=== PATIENT | male | born 1955 | race Caucasian/White ===

== ENCOUNTER 2017-06-29 18:38 | Emergency (ER) | payer OTHER, MEDICARE ==
[~2017-06-29] VITALS: Ht 175.3 cm; Wt 136.1 kg
[2017-06-29 20:39] LABS: ABSOLUTE BASOPHIL COUNT 0 /CUMM (0.0-0.2); ABSOLUTE EOSINOPHIL COUNT 0.1 /CUMM (0.0-0.7); ABSOLUTE GRANULOCYTE CT 10.8 /CUMM (1.4-6.5); ABSOLUTE MONOCYTE COUNT 0.6 /CUMM (0.10-0.60); BASOPHIL % 0.1 % (0.0-2.0); GRANULOCYTE % 85.6 % (42.2-75.2); HEMATOCRIT 36.3 % (42-52); MEAN CORPUSCULAR HGB 28.3 PG (27.0-31.0); MEAN CORPUSCULAR HGB CONC 32.1 G/DL (33.0-37.0); MEAN CORPUSCULAR VOLUME 88.2 FL (80.0-94.0); MEAN PLATELET VOLUME 12.1 FL (7.4-10.4); PLATELET COUNT 226 /CUMM (130-400); RBC DISTRIBUTION WIDTH 15.1 % (11.5-14.5); RED BLOOD CELL CT 4.11 /CUMM (4.70-6.10); WHITE BLOOD CELL COUNT 12.6 /CUMM (4.8-10.8)
--- NOTE | 2017-06-29 20:49 | ED GI/GU/ABDOMINAL COMPLAINT ---
See Addendum History of Present Illness General Chief Complaint: Nausea, Vomiting, Diarrhea Stated Complaint: NVD Source: patient, old records Exam Limitations: no limitations Vital Signs & Intake/Output Vital Signs & Intake/Output Vital Signs Date Time Temp Pulse Resp B/P B/P Pulse O2 O2 Flow FiO2 Mean Ox Delivery Rate 06/29 2316 100.4 06/29 2236 100.4 90 20 135/60 93 Nasal 2.0L Cannula 06/29 2131 100.6 06/29 204 100.6 96 20 144/90 91 Room Air 06/29 1849 100.2 108 18 167/85 98 Room Air ED Intake and Output 06/30 0000 06/29 1200 Intake Total Output Total Balance Patient 300 lb Weight Weight Reported by Patient Measurement Method Allergies Coded Allergies: NO KNOWN ALLERGIES (08/17/14) NKA PER ANTIBIOTIC ORDER SHEET OF 08/17/14 ([facility]) Reconcile Medications Adalimumab (Humira Pen) 40 MG/0.8 ML PEN.IJ.KIT 1 SYR SC Q2W PSORIASIS ( Reported) Calcium Carb/Vit D3/Minerals (Calcium +D & Minerals Chew Tab) (Unknown Strength) TAB.CHEW (Unknown Dose) PO DAILY SUPPLEMENT (Reported) Triamcinolone Acetonide 0.1 % OINT...G. 1 KEVIN TOP PRN PSORIASIS (Reported) apply to affected area(s) Triage Note: 62 YO MALE TO TRAIGE C/O VOMTIING X2 DAYS. C/O ABD CRAMPING. DENIES DIRRHEA. PT STATES HE IS SOB, NO RESP DISTRESS NOTED. Triage Nurses Notes Reviewed? yes Onset: Abrupt Duration: day(s): (3), constant Timing: recent history Quality/Severity: aching, vomiting Severity Numbers: 6 Location: epigastric Radiation: no radiation Activities at Onset: none No Modifying Factors: none Associated Symptoms: denies HPI: 62-year-old male with history of psoriasis presents to ER for evaluation complaining of a three-day history of nausea vomiting and epigastric abdominal pain associated with feeling short of breath dyspnea upon exertion and cough. He denies any sick contacts. Report Christ reports to subjective fever chills at home no chest pain or pain with inspiration. The patient reports to a history of chronic bilateral lower extremity swelling which, He states unchanged from previous. black or bloody stools diarrhea hematemesis he does not smoke no history of asthma. The patient does report to being admitted in the past once for pneumonia. He denies any lower abdominal pain (Raymond Lyles) Past History Travel History Traveled to [place] past 21 day No Medical History Any Pertinent Medical History? see below for history Neurological: NONE EENT: NONE Cardiovascular: NONE Respiratory: NONE Gastrointestinal: NONE Hepatic: NONE Renal: NONE Musculoskeletal: NONE Psychiatric: NONE Endocrine: NONE Blood Disorders: NONE Cancer(s): NONE BIOPHARMACEUTICAL REP/Reproductive: NONE Surgical History Surgical History: none Psychosocial History Who do you live with Family Services at Home None What is your primary language Kinyarwanda Tobacco Use: Never used Family History Hx Contributory? No (Raymond Lyles) Review of Systems Review of Systems Constitutional: Reports: see HPI. Comments Review of systems: See HPI, All other systems negative. Constitutional, fever, no malaise no weight loss HEENT: no sore throat no congestion, no ear pain Cardiovascular: No chest pain , no palpitation Skin: no rashes, no change in skin Respiratory: dyspneacough no sputum no hemoptysis GI:nausea vomiting, no diarrhea : No dysuria No hematuria Muscle skeletal: No joint pain, no back pain, no neck pain, Neurologic: , no headache Heme/endocrine: No bruising Immunology: No lymphadenopathy (Raymond Lyles) Physical Exam Physical Exam General Appearance: well developed/nourished, alert, awake Gastrointestinal: soft, non-tender, hernia Comments: Well-developed well-nourished person in no acute distress HEENT: Normal EENT exam; PERRL, EOMI, HEAD is atraumatic. moist mucous membranes. Neck: Supple, no lymphadenopathy, normal range of motion Back: Nontender, no CVA tenderness. Full range of motion Cardiovascular: Regular rate and rhythms no murmurS, normal JVP Respiratory:No respiratory distress. Patient speaking in full complete sentences. Diminished breath sounds bilaterally Abdomen: Soft, nontender (+) midline hernia, nondistended, no appreciable organomegaly. Normal bowel sounds. No rebound/guarding, No ascites. Extremity: B/L LE edema pt reports is baseline, full range of motion of extremities, Neuro: Alert oriented x3, motor sensory normal, There were no obvious focal neurologic abnormalities. Skin: No appreciable rash on exposed skin, skin is warm and dry. Psych: Mood and affect is normal, memory and judgment is normal. Core Measures ACS in differential dx? Yes Sepsis Present: No Sepsis Focused Exam Completed? No (Letha RIOS,Raymond) Progress Differential Diagnosis: appendicitis, biliary colic, bowel obstruction, colon cancer, gastritis, hepatitis, hernia, pancreatitis, pna, pe. ami, chf Plan of Care: Orders Procedure Date/time Status Nothing by Mouth 06/30 B Active TROPONIN LEVEL 06/30 0800 Active EKG 06/30 0800 Active CBC WITHOUT DIFFERENTIAL 06/30 0600 Active BASIC ELECTROLYTES PLUS BUN&CR 06/30 0600 Active TROPONIN LEVEL 06/30 0200 Active EKG 06/30 0200 Active LACTIC ACID 06/30 0109 Active SWALLOW EVALUATION 06/30 0016 Active Pathway - chart 06/30 0016 Active House Staff 06/30 0016 Active Patient Data 06/30 0016 Active Code Status 06/30 0016 Active TRC EVALUATION (GEN) 06/30 UNK Active VTE Mechanical Prophylaxis 06/30 UNK Active Vital Signs 06/30 UNK Active Patient Data 06/29 2254 Active Saline Lock 06/29 2252 Active Misc Message 06/29 2252 Active ED Holding Orders 06/29 2252 Active Admit to inpatient 06/29 2252 Active Vital Signs 06/29 2252 Active Code Status 06/29 2252 Complete BLOOD CULTURE 06/29 220 Active LACTIC ACID 06/29 220 Complete RAPID VIRAL INFLUENZA A 06/29 205 Complete Intake & Output 06/29 2034 Active TROPONIN LEVEL 06/29 1928 Complete LIPASE 06/29 1928 Complete HEPATIC FUNCTION PANEL 06/29 1928 Complete CBC WITHOUT DIFFERENTIAL 06/29 192 Complete BASIC METABOLIC PANEL 06/29 1928 Complete AMYLASE 06/29 192 Complete EKG 06/29 1848 Active Current Medications Sig/Stefania Start time Last Medication Dose Stop Time Status Admin Calcium Carbonate 1,250 MG DAILY 06/30 1000 AC (Calcium Carbonate) Cholecalciferol 1,000 IU DAILY 06/30 1000 AC (Vitamin D) Enoxaparin Sodium 40 MG DAILY 06/30 1000 AC (Lovenox) Omeprazole 40 MG DAILY AC 06/30 0700 AC (Prilosec) Acetaminophen 650 MG Q6P PRN 06/30 0030 AC (Tylenol) Acetaminophen 1,000 MG Q6P PRN 06/30 0030 AC (Ofirmev) Albuterol Sulfate 3 ML Q6 PRN 06/30 0030 AC (Proventil) Ampicillin Sodium/ 3,000 MG Q6 06/30 0030 AC Sulbactam Sodium (Unasyn) Sodium Chloride 100 ML (Normal Saline 0.9%) Triamcinolone 1 KEVIN DAILY NEEDED PRN 06/30 003 AC Acetonide (Kenalog) Sodium Chloride 1,000 ML .Q10H 06/30 0015 AC (Normal Saline 0.9%) 06/30 2013 Sodium Chloride 1,000 ML ONCE ONE 06/29 2129 AC 06/29 (Normal Saline 0.9%) 06/30 Laboratory Tests 06/29/172224: Lactic Acid 1.0 06/29/17 2030: Anion Gap 17 H, Estimated GFR > 60, BUN/Creatinine Ratio 15.0, Glucose 95, Calcium 6.0 L, Total Bilirubin 0.6, Direct Bilirubin 0.2, AST 24, ALT 29, Alkaline Phosphatase 107, Troponin I < 0.01, Total Protein 8.7 H, Albumin 4.2, Amylase 47, Lipase 46, CBC w Diff NO MAN DIFF REQ, RBC 4.11 L, MCV 88.2, MCH 28.3, RDW 15.1 H, MPV 12.1 H, Gran % 85.6 H, Lymphocytes % 8.3 L, Monocytes % 5.0, Eosinophils % 1.0, Basophils % 0.1, Absolute Granulocytes 10.8 H, Absolute Lymphocytes 1.0 L, Absolute Monocytes 0.6, Absolute Eosinophils 0.1, Absolute Basophils 0, PUBS MCHC 32.1 L Microbiology 06/29 2230 BLOOD: Blood Culture - RECD 06/29 2224 BLOOD: Blood Culture - RECD 06/29 2139 NASOPHARYN: Influenza Virus A & B Rapid Smear - COMP Labs ordered old records reviewed CAT scan chest x-ray ordered as patient is noted to be 85% on room air placed on 2 L increased to 9596%. He denies any chest pain hemoptysis. Case discussed with Dr. Eid agrees with plan I discussed with patient his x-ray and CAT scan findings suggestive of pneumonia and incidental findings on ct regarding pelvic lymphadenopathy, he denies any sick contacts resting comfortably at this time he's had no episodes of vomiting in the department. Discussed with him plan and need for admission which she is in agreement with [id number] case d/w dr shilpi will admit Diagnostic Imaging: Viewed by Me: Radiology Read. Discussed w/RAD: Radiology Read. Radiology Impression: PATIENT: INDERJIT MARTINEZ PRESENT AGE: 62 PATIENT ACCOUNT NO: [id number] : 55 LOCATION: [facility] ORDERING PHYSICIAN: Raymond RIOS SERVICE DATE: 06/29/17 EXAM TYPE: RAD - XRY-PORTABLE CHEST XRAY EXAMINATION: XR PORTABLE CHEST CLINICAL INFORMATION: Cough and fever COMPARISON: Chest x-ray 08/03/2010 TECHNIQUE: Portable frontal view of the chest was obtained. 9:07 PM FINDINGS: Lungs are clear. No pulmonary vascular congestion. There is no pleural effusion. The heart size is normal. The cardiac and mediastinal contours are normal. There are multilevel degenerative changes of dorsal spine. IMPRESSION: Unremarkable examination. DICTATED BY: Collin Alvarenga MD DATE/TIME DICTATED:06/29/172132 FUNERAL DIRECTOR:MONCHO DATE/TIME TRANSCRIBED:06/29/172132 CONFIDENTIAL, DO NOT COPY WITHOUT APPROPRIATE AUTHORIZATION. <Electronically signed in Other Vendor System> SIGNED BY: Collin Alvarenga MD 06/29/172137 Initial ED EKG: stach at 100, nonspecific st seg changes, normal axis Prior EKG: unchanged (08/2014) (Raymond Lyles) Departure Departure Time of Disposition: 2251 Disposition: STILL A PATIENT Condition: Stable Clinical Impression Primary Impression: Pneumonia Qualifiers: Pneumonia type: due to unspecified organism Laterality: unspecified laterality Lung location: unspecified part of lung Qualified Code: J18.9 - Pneumonia, unspecified organism Secondary Impressions: Hypoxia, Pelvic lymphadenopathy Referrals: Moe GAVIRIA,Dominic Merida (PCP/Family) Departure Forms: Customer Survey General Discharge Information Admission Note Spoke With: Diamond Smith MD Documentation of Exam: Documentation of any treatments & extenuating circumstances including Concerns Regarding Discharge (functional status, medication knowledge or non-compliance, living conditions, etc.) that warrant an admission rather than observation: [ Trend labs and cultures IV antibiotics pulmonary consult respiratory treatments when necessary premature discharge to BE medically harmful (Raymond Lyles) PA/CLINICAL RESOURCE DIRECTOR Co-Sign Statement Statement: ED Attending supervision documentation- [] I saw and evaluated the patient. I have also reviewed all the pertinent lab results and diagnostic results. I agree with the findings and the plan of care as documented in the PA's/CLINICAL RESOURCE DIRECTOR's documentation. 06/29/17, 22:50... pt with cough, productive of phlegm, bilateral rhonchi, and chronic venous stasis changes on exam. pt w/ pneumonia, merits 02 support, iv abx. [] I have reviewed the ED Record and agree with the PA's/CLINICAL RESOURCE DIRECTOR's documentation. [] Additions or exceptions (if any) to the PAs/CLINICAL RESOURCE DIRECTOR's note and plan are summarized below: [] (Ragini GAVIRIA,Kirk Clarke)
--- NOTE | 2017-06-29 21:38 | RADIOLOGY REPORT ---
EXAMINATION: XR PORTABLE CHEST CLINICAL INFORMATION: Cough and fever COMPARISON: Chest x-ray 08/03/2010 TECHNIQUE: Portable frontal view of the chest was obtained. 9:07 PM FINDINGS: Lungs are clear. No pulmonary vascular congestion. There is no pleural effusion. The heart size is normal. The cardiac and mediastinal contours are normal. There are multilevel degenerative changes of dorsal spine. IMPRESSION: Unremarkable examination.
[2017-06-29] MEDS ORDERED: HUMIRA PEN40 MG/0.8 SC (21:39)
[2017-06-29] MEDS ORDERED: TRIAMCINOLONE A15 G3 TOP (21:40)
[2017-06-29] MEDS ORDERED: CALCIUM +D & M1 EACH PO (21:41)
--- NOTE | 2017-06-29 21:59 | CT SCAN REPORT ---
EXAMINATION: CT ABDOMEN AND PELVIS WITHOUT CONTRAST CLINICAL INFORMATION: Abdominal pain. Nausea and vomiting. COMPARISON: None. TECHNIQUE: Multidetector volumetric imaging was performed from the superior aspect of the liver through the pubic symphysis. Sagittal and coronal reformatted images were obtained on the technologist's workstation. DLP: 1446.12 mGy-cm FINDINGS: LUNG BASES: Patchy bibasilar airspace opacities, infiltrates. LIVER, GALLBLADDER, AND BILIARY TREE: Liver is low in attenuation without focal liver lesion or intrahepatic bile duct dilatation. Kami's lobe configuration of liver with the right lobe measuring 20.5 cm superior inferior. The gallbladder is unremarkable with no evidence of radiopaque gallstones, gallbladder wall thickening, or obvious pericholecystic inflammatory changes. PANCREAS: Unremarkable. SPLEEN: Unremarkable. ADRENAL GLANDS: Unremarkable. KIDNEYS AND URETERS: The kidneys are normal in size, shape, and attenuation. No hydronephrosis, hydroureter, or calculi seen. No perinephric stranding. BLADDER: Unremarkable. GASTROINTESTINAL TRACT: The small and large bowel are unremarkable. The appendix is unremarkable. There is a small hiatal hernia. ABDOMINAL WALL: No significant hernia is appreciated. LYMPH NODES: Multiple morphologically normal-appearing lymph nodes in the groin bilaterally containing fatty mariza. There is large lymph nodes at the external iliac chain also containing fatty mariza bilaterally. Lymph node on the right measuring 3.7 cm in short axis diameter in the lymph node on the left measuring 2.6 cm in short axis diameter. There is borderline enlarged lymph nodes at the common iliac chain on the left measuring slightly greater than 1 cm in short axis diameter. VASCULAR: Unremarkable. PELVIC VISCERA: Unremarkable. OSSEOUS STRUCTURES: Degenerative spondylosis of spine. Bridging osteophytes of lower thoracic spine. Non-bridging and bridging osteophytes of the lumbar spine. Status post fusion with transpedicular screws lumbosacral junction. IMPRESSION: 1. No acute abnormality CT scan abdomen pelvis. 2. Pelvic lymphadenopathy. There are enlarged lymph nodes in the pelvis at the groin, external iliac chain, which have fatty mariza. Borderline enlarged lymph nodes in the left common iliac chain.
--- NOTE | 2017-06-29 23:16 | History & Physical ---
[place] 06/29/17 3148: General Information and HPI MD Statement: I have seen and personally examined INDERJIT MARTINEZ and documented this H&P. The patient is a 62 year old M who presented with a patient stated chief complaint of nausea, vomiting with fever and short of breath for last 2 days.[]. Source of Information: patient, old records Exam Limitations: no limitations History of Present Illness: 62 YO M with PMH of psoriasis on humira twice a month, primary hypoparathyridism on calcium/vit D3 supplement, back pain and abdominal ventral hernia s/p laproscopic herniplasty presented to ED with chief complain of nausea and vomiting for last 2 days. Patient reported that he has nausea and vomiting intermittently for last 2-3 month but for last 2 days he has constant nausea and vomiting. He is not able to keep anything down. Patient reported multiple episodes of vomiting for last 2 days, vomiting was yellow in color nonbloody and [id number]. Patient reported that his continuous nausea and vomiting is going on for last 2 days and this is never happened before. He didn't see any primary care physician for nausea and vomiting but today he came to ED because it continuously going on for last 2 days. Patient also reported having retrosternal burning sensation due to continuous vomiting according to the patient. He also reported having fever with chills and shortness of breath started after episodes of vomiting. Patient reported that last time he ate food from outside two days back that was steaks and potato. Patient denied any chest pain, palpitation, ill contact, abdominal pain, diarrhea, constipation, runny nose, headache, lightheadedness, loss of consciousness, use of illicit drugs and dysuria. Patient also reported having chronic venous insufficiency and he had a recent procedure for this. He is also using pressure stocking for chronic venous insufficiency pedal edema. Last time patient was admitted to [facility] in 2010 with complain of intermittent spasms in neck and short of breath and found to have hypocalcemia. ED course: Vitals: Temperature 100.2, pulse 108, respiratory rate 18, blood pressure 167/85 , oxygen saturation 93% on 2 L of oxygen. Labs: WBC count 12.6, hemoglobin 11.6, hematocrit 36.3, platelet count 226, sodium 148, potassium 4.4, BUN 15, creatinine 1.0, calcium 6.0, anion gap 17, BUNs/creatinine ratio 15.0, glucose 95, total bilirubin 0.6, AST 24, ALT and 29, total protein 8.7, albumin 4.2, Patient received thousand mL normal saline and one dose of ceftriaxone and 1 dose of azithromycin in ED. Allergies/Medications Allergies: Coded Allergies: NO KNOWN ALLERGIES (08/17/14) NKA PER ANTIBIOTIC ORDER SHEET OF 08/17/14 ([facility]) Home Med list Adalimumab (Humira Pen) 40 MG/0.8 ML PEN.IJ.KIT 1 SYR SC Q2W PSORIASIS ( Reported) Calcium Carb/Vit D3/Minerals (Calcium +D & Minerals Chew Tab) (Unknown Strength) TAB.CHEW (Unknown Dose) PO DAILY SUPPLEMENT (Reported) Triamcinolone Acetonide 0.1 % OINT...G. 1 KEVIN TOP PRN PSORIASIS (Reported) apply to affected area(s) Past History Travel History Traveled to [place] past 21 day No Medical History Neurological: NONE EENT: NONE Cardiovascular: NONE Respiratory: NONE Gastrointestinal: NONE Hepatic: NONE Renal: NONE Musculoskeletal: NONE Psychiatric: NONE Endocrine: NONE Blood Disorders: NONE Cancer(s): NONE CATERING OPERATIONS MANAGER/Reproductive: NONE Surgical History Surgical History: none Past Family/Social History Psychosocial History Services at Home: None Review of Systems Review of Systems Constitutional: Reports: chills, fever. EENTM: Reports: no symptoms. Cardiovascular: Reports: no symptoms. Respiratory: Reports: short of breath. GI: Reports: nausea, vomiting. Genitourinary: Reports: no symptoms. Musculoskeletal: Reports: no symptoms. Neurological/Psychological: Reports: no symptoms. Exam & Diagnostic Data Last 24 Hrs of Vital Signs/I&O Vital Signs Date Time Temp Pulse Resp B/P B/P Pulse O2 O2 Flow FiO2 Mean Ox Delivery Rate 06/29 2236 100.4 90 20 135/60 93 Nasal 2.0L Cannula 06/29 2131 100.6 06/29 2048 100.6 96 20 144/90 91 Room Air 06/29 1849 100.2 108 18 167/85 98 Room Air Physical Exam General Appearance Alert, Oriented X3, Cooperative Skin psoriatic lesions Skin Temp/Moisture Exam: Warm/Dry Sepsis Skin Exam (color): Normal for Ethnicity HEENT Atraumatic, PERRLA, EOMI Neck Supple Cardiovascular Normal S1, Normal S2 Lungs B/L basal crackles Abdomen Soft, No Tenderness Neurological Normal Speech, Strength at 5/5 X4 Ext, Normal Tone, Sensation Intact Extremities B/L pedal edema with chronic venous insufficiency, redness and psoriatic lesions Last 24 Hrs of Labs/Derek: Laboratory Tests 06/29/172224: Lactic Acid 1.0 06/29/17 2030: Anion Gap 17 H, Estimated GFR > 60, BUN/Creatinine Ratio 15.0, Glucose 95, Calcium 6.0 L, Total Bilirubin 0.6, Direct Bilirubin 0.2, AST 24, ALT 29, Alkaline Phosphatase 107, Troponin I < 0.01, Total Protein 8.7 H, Albumin 4.2, Amylase 47, Lipase 46, CBC w Diff NO MAN DIFF REQ, RBC 4.11 L, MCV 88.2, MCH 28.3, RDW 15.1 H, MPV 12.1 H, Gran % 85.6 H, Lymphocytes % 8.3 L, Monocytes % 5.0, Eosinophils % 1.0, Basophils % 0.1, Absolute Granulocytes 10.8 H, Absolute Lymphocytes 1.0 L, Absolute Monocytes 0.6, Absolute Eosinophils 0.1, Absolute Basophils 0, PUBS MCHC 32.1 L Microbiology 06/29 2230 BLOOD: Blood Culture - RECD 06/29 2224 BLOOD: Blood Culture - RECD 06/29 2139 NASOPHARYN: Influenza Virus A & B Rapid Smear - COMP Assessment/Plan Assessment: 62 YO M with PMH of psoriasis on humira twice a month, primary hypoparathyridism on calcium/vit D3 supplement, back pain and abdominal ventral hernia s/p laproscopic herniplasty presented to ED with chief complain of nausea and vomiting for last 2 days. Patient reported that he has nausea and vomiting intermittently for last 2-3 month but for last 2 days he has constant nausea, vomiting with shortness of breath and fever. With the patient on Gen. medicine floor to treat for aspiration pneumonia. Acute hypoxic respiratory failure probably due to aspiration pneumonia: -Supplemental oxygen as needed to maintain saturation above 90%. -Patient is meeting the criteria SIRS considering his temperature 100.6, heart rate 108, WBC count 12.6 and source of infection possibly aspiration pneumonia. Considering these patient meets the criteria of sepsis. -TRC nebulization as needed -Blood cultures and sputum culture. -IV Unasyn 3 g every 6 hourly. -IV Protonix -Swallow eval -trop and EKGs considering his retrosternal burning pain just to rule out cardiac ischemic injury. Nausea vomiting probably due to acute gastritis; -Nothing by mouth for now. -IV Zofran every 6 hourly as needed -IV Protonix. Dehydration: -Due to nausea and vomiting. His anaion gap was high possibly due to dehydration and starvation. -IV hydration with normal saline at the rate of 100 mL per hour. -We will monitor input and output -BEP for electrolytes Foreign body impaction: -Considering nausea and vomiting with retrosternal pain after eating steak. He is not able to swallow even liquids, so we will rule out foreign body impaction. -X-ray barium swallow in am. -If patient becomes hemodynamically unstable we will notify to GI. -No need for urgent endoscopy. History of psoriasis: -We will continue triamcinolone and ointment for psoriatic lesions. History of hypocalcemia due to primary hyperparathyroidism: -We will continue calcium carbonate with vitamin D. DVT prophylaxis: Mechanical and Lovenox CODE STATUS: Full code As Ranked By This Provider Problem List: 1. Acute respiratory failure with hypoxia 2. Aspiration pneumonia 3. Dehydration Core Measures/Misc (02/25) Acute Coronary Syndrome ACS Diagnosis: No Congestive Heart Failure Congestive Heart Failure Diagnosis No Cerebrovascular Accident CVA/TIA Diagnosis: No VTE (View Protocol) VTE Risk Factors Age>40 No Mechanical VTE Prophylaxis d/t N/A MechProphylax Ordered No VTE Pharm Prophylaxis d/t NA PharmProphylax ordered Sepsis (View protocol) Sepsis Present: No Aleksey Wood 06/30/17 0052: Resident Review Statement Resident Statement: examined this patient, discussed with analysis internship, agreed with analysis internship, discussed with family, reviewed EMR data (avail), discussed with nursing , discussed with case mgmt, reviewed images, amended to note Other Findings: This is a 62-year-old male with past medical history significant for psoriasis on immunosuppressant drug Humira, steroid cream triamcinolone, primary hypothyroidism, hypocalcemia on calcium supplementation, chronic bilateral lower extremity swelling, vein closure procedure few years back presented to the ER for nausea, vomiting, retrosternal chest pain for 2 days. Patient reports sudden onset of nausea associated with continuous vomiting, couldn't keep up anything for last 2 days which has worsened overnight. Also reports retrosternal chest pain from vomiting. Denies any blood in the vomitus. Biliary vomiting. Denies any lower abdominal pain, hemtemesis, hematochezia, melena, constipation, diarrhea. He attributes nausea and vomiting after eating steak. No oral intake for the past 2 days as he couldn't even swallow water. Reports some shortness of breath associated with the vomiting. Patient also reports fever and chills. Denies any sick contacts, recent travel. Denies any history of gastritis, GERD, endoscopy or colonoscopy in the past. Denies any chest pain radiating to arm or shoulder, palpitations, urinary symptoms. Review of systems was negative except for above. He has past medical history significant for psoriasis taking Humira twice monthly, triamcinolone cream for skin lesions. He has remote history of primary hypoparathyroidism taking calcium supplements daily. Denies any allergies, smoking history, illicit drug abuse, alcohol history. Follows up with PCP, sack maker closely. Vitals febrile max temperature 100.6, tachycardic 108, respiratory rate 18, blood pressure 167/85, saturating at 93 on 2 L. On physical exam HEENT within normal limits, no JVD, S1-S2 normal, bilateral lungs crackles, decreased breath sounds at the bases, abdomen soft, nondistended , nontender, bowel sounds present, extensive psoriatic skin lesions involving lower extremities with plaques, salmon-colored and +2 bilateral pitting edema, no focal neurologic deficits. Pertinent labs leukocytosis 12.7, left shift, no bands, hemoglobin 11.6, hematocrit 36, platelets 226. Sodium 148, potassium 4.4, bicarbonate 32, BUN 15, creatinine 1, anion gap 17. Lactic acid 1 Troponin normal FLU was negative. Calcium 6 EKG showed sinus tachycardia, sinus rhythm, rate 144, no ST-T wave changes CAT scan chest findings suggestive of patchy bibasilar air space opacities and infiltrates. 1. Possible FB impaction Patient presented with nausea, vomiting, retrosternal chest pain for 48 hours after eating steak. He couldn't keep up/swallow even liquids. He denies any difficulty swallowing oral secretions. he denies any choking on food, drooling of secretions, retrosternal fullness, food regurgitation, wheezing, neck swelling or tenderness. However he continued to report difficulty swallowing. * Gastro was consulted for any urgent endoscopy * Spoke with Dr. Bonner employee relation manager regarding further recommendations. * Advised to get barium swallow in the morning as there is no power generation technician to get barium swallow in the night. * No need for urgent endoscopy now. * X-ray barium swallow was ordered. * If patient becomes hemodynamically unstable will notify GI. 2. Acute Hypoxic respiratory failure from Aspiration pneumonia/pneumonitis Given his acute dyspnea, tachypnea, tachycardia, low-grade fevers, crackles on exam after several episodes of nausea and vomiting there is concern for aspiration pneumonia. CAT scan chest findings suggest show bilateral lower lobe infiltrates. * IV fluids normal saline 100 mL per hour * IV Unasyn 3 g every 6 for aspiration pneumonia * Monitor leukocyte count * monitor WBC * TRC nebs * provide oxygen supplementation to maintain saturations above 88 * Follow-up blood cultures * Follow up serial troponin and EKG given his retrosternal chest pain 3. History of psoriasis Continue triamcinolone cream Takes Humira twice monthly 4. Primary high parathyroidism and hypocalcemia Continue calcium and vitamin D supplements DVT prophylaxis subcutaneous Lovenox Nothing by mouth pending swallow evaluation and GI evaluation Pain pathway Full code
--- NOTE | 2017-06-30 01:41 | PN- Att Addend ---
Attending Addendum Attending Brief Note CC: Nausea vomiting and shortness of breath PMH: Psoriasis, hypocalcemia, history of abdominal hernia status post repair Patient came to ER for persistent nausea and vomiting since last 2 days. Patient states that he had a steak and potato dinner, since then he has been having multiple vomitings, cannot swallow anything much, has not eaten anything since last 2 days, even if he drinks water he is throwing up. It's associated with gurgling sensation in his chest, ? Feeling stuck, heartburn. Denies any abdominal pain, diarrhea, blood in vomiting or blood in stool. After vomiting episode patient started to notice severe shortness of breath but denies any cough or expectoration. He states that he is having phlegm in his vomiting. Patient has been having nausea and vomiting symptoms lasting for few hours intermittently since last 2-3 months, did not take any treatment for that. He occasionally takes NSAIDs [id number] but denies any correlation of his symptoms to that. No different medication changes. Vitals: MAXIMUM TEMPERATURE 100.6, pulse 108, RR 18, blood pressure 167/85, saturating 98% on 2 L nasal cannula On exam: A O 3, cooperative, morbidly obese, no acute distress, neck supple, JVD normal, no lymphadenopathy, mucosa moist, no focal neurological deficit, no dependent edema, no multiple psoriatic lesions, no evidence of super added cellulitis or inflammation CVS: S1-S2, RRR. RS: By basilar fine crackles. Abdomen: Soft, NT, ND, bowel sounds present. Labs: WBC 12.6, neutrophils 85%, hemoglobin 11.6, hematocrit 36.3, platelet 226, sodium 148, potassium 4.4, chloride 99: Dr. cavazos, BUN 15, creatinine 1.0, glucose 95, calcium 6.0, lactate 1.0, LFT unremarkable, troponin less than 0.01, protein 8.7, lipase 46 CT abdomen and pelvis without IV contrast: 1. No acute abnormality CT scan abdomen pelvis. 2. Pelvic lymphadenopathy. There are enlarged lymph nodes in the pelvis at the groin, external iliac chain, which have fatty mariza. Borderline enlarged lymph nodes in the left common iliac chain. 3. Patchy bibasilar airspace opacities, infiltrates. CXR : Unremarkable examination. Assessment and plan 62-year-old male with past medical history significant for psoriasis and hypocalcemia presented in ER for 2 day history of nausea and vomiting. Patient states that after having dinner of steak and potato he has been vomiting persistently, unable to keep anything down, unable to even drink water, did not eat anything since last 2 days. Associated with substernal burning, gurgling sensation, not sure if he feels food is stuck. At the same type into the shortness of breath, denies cough or expectoration. Patient was febrile in ER, mild fine basilar crackles and leukocytosis, CT scan abdomen was obtained which mentioned about the lungs having patchy bibasilar air space disease. It appears that patient may be having aspiration pneumonia versus pneumonitis secondary to recurrent vomiting but exact cause of vomiting is unclear at this point. + Nausea vomiting + Aspiration pneumonia - Admit to general medicine - Continue IV hydration with normal setting 100 mL per hour - Continue Zofran when necessary - A dose of Protonix 40 mg IV, see response, consider continuing omeprazole after that - IV Unasyn for aspiration pneumonia - Try to wean off oxygen - Mucinex, TRC nebs - Serial troponin and ECG - Follow-up GI recommendation for questionable food impaction - DVT prophylaxis - Adequate pain control
--- NOTE | 2017-06-30 01:42 | Admission Certification ---
See Addendum Admission Certification Certification Statement - As attending physician, I certify that at the time of - admission, based on clinical presentation, severity of - symptoms, need for further diagnostic testing and - therapeutic interventions, and risk of adverse outcomes - without in-hospital treatment, in my clinical assessment, - this patient requires an acute hospital stay for a minimum - of two nights or longer. I have also considered psychsocial - factors such as support system, advanced age, financial - issues, cognitive issues, and failed out-patient treatments, - past re-admission history, safety of patient, and lack of - compliance as applicable. Specific rationale supporting this admission is: Aspiration pneumonia, intractable vomiting
--- NOTE | 2017-06-30 01:51 | Event Note ---
Event Note Event Note: Patient presented with nausea, vomiting, retrosternal chest pain for 48 hours after eating steak. He couldn't keep up/swallow even liquids. He denies any difficulty swallowing oral secretions. he denies any choking on food, drooling of secretions, retrosternal fullness, food regurgitation, wheezing, neck swelling or tenderness. However he continued to report difficulty swallowing solids and liquids. * Gastro was consulted for any urgent endoscopy. * Spoke with Dr. Bonner optical worker regarding further recommendations. * Advised to get barium swallow in the morning as there is no xary tech to get barium swallow in the night. * No need for urgent endoscopy now. * X-ray barium swallow was ordered. * If patient becomes hemodynamically unstable will notify GI. * Discussed with Dr. Smith, attending physician. CAT scan abdomen with oral contrast was ordered to check about Gastrografin passage. However patient couldn't do that as he is continuously spitting Gastrografin. Coin Box Inspector was consulted about the situation, not planning to do urgent scope. Patient was transferred to [facility] for urgent endoscopy.
[2017-06-30 03:19] VITALS: BP 123/57
== END 2017-06-30 03:38 | disposition short-term general hospital (02) ==
LOC: ERH 18:38 → ERHI 22:52 → ENRESERV 06-30 01:23 → CANRESERV 06-30 01:23 → EDBEDREQ 06-30 01:32 → ENRESERV 06-30 01:34 → ERHI 06-30 02:30
PROVIDERS: Pediatrics
DX: R59.1 Generalized enlarged lymph nodes (principal)
CPT/HCPCS: ERO; 71045; 74176; 82436; 87040; 87804; 87804-59; 93005; 93010; 96361; 96365; 96366; 96375; J0131; J0456; J0696; J1610; J1650; J2405; J7040